=== PATIENT | female | born 1965 | race Caucasian/White ===

== ENCOUNTER 2020-03-23 08:39 | Emergency (ER) | payer BC ==
--- OUTSIDE RECORDS SUMMARY | 2020-03-23 08:42 | XMS REPORT | Clinical Summary ---
:1965 Author Organization [facility] Address [address] [place] [address] Care Team Providers Name Role Phone Clarissa Hendricks MD Primary Care Provider Allergies No Known Allergies Medications Medication Sig Dispensed Refills Start Date End Date Status lisinopril Take 5 mg by 0 Active (PRINIVIL,ZESTRIL) 5 MG mouth daily. tablet metFORMIN (GLUCOPHAGE) Take 500 mg by 0 Active 500 MG tablet mouth daily with breakfast. estradiol (VIVELLE-DOT) Place 1 patch 0 Active 0.025 mg/24 hr patch onto the skin twice a week. pravastatin (PRAVACHOL) Take 10 mg by 0 Active 10 MG tablet mouth daily. fluvastatin (LESCOL) 20 Take 20 mg by 0 Active MG capsule mouth nightly. Active Problems Not on file Social History Tobacco Use Types Packs/Day Years Used Date Never Smoker Smokeless Tobacco: Never Used Alcohol Use Drinks/Week oz/Week Comments Yes social drinker Sex Assigned at Date Recorded Not on file Job Start Date Occupation Industry Not on file Not on file Not on file Travel History Travel Start Travel End No recent travel history available. Last Filed Vital Signs Not on file Plan of Treatment Not on file Results Not on fileafter 03/23/2019 Insurance Payer Benefit Plan / Subscriber ID Type Phone Address Group BLUE CROSS/BLUE [employer] OS xxxxxxxxxxxxxxx PPO [phone] [address] [place]IELD POS/PPO/[place] [address] [id number] (Home) [place] [id number]
--- OUTSIDE RECORDS SUMMARY | 2020-03-23 08:42 | XMS REPORT | Continuity of Care Document ---
:1965 Author Organization [facility] t Address [address] [place] [address] Care Team Providers Name Role Phone Clarissa Hendricks MD Primary Care Physician JAY STONE Attending Clinician Unavailable LYNETTE BETTS Admitting Clinician Unavailable Payers Payer Name Policy Type Policy Number Effective Date Expiration Date S ource Problems This patient has no known problems. Allergies, Adverse Reactions, Alerts This patient has no known allergies or adverse reactions. Social History Social Habit Start Date Stop Date Quantity Comments Source Sex Assigned At [facility] Alcohol Comment 2018-01-18 2018-01-18 social drinker [facility]00 00:00:00 [facility] Smoking Status Start Date Stop Date Source Never smoker [facility] Medications Ordered Filled Start Stop Current Ordering Indication Dosage Frequency Signature Comments Components Source Medication Medication Date Date Medication? Clinician (SIG) Name Name fluvastatin Yes 20mg QD Take [address] [facility] (LESCOL) 20 6-27 by mouth Luke [facility] - MG capsule 10:35: nightly. Med ical 04 [facility] lisinopril Yes 5mg QD Take [address] [facility] [address] [facility] (PRINIVIL,Z 6-26 by mouth Luke [facility] - ESTRIL) 5 10:36: daily. Medica l MG tablet 55 [facility] metFORMIN 2018-0 Yes 500mg Take [address] [facility] (GLUCOPHAGE 6-26 mg by [facility] - ) 500 MG 10:36: mouth Medical tablet 55 daily with Center breakfast. estradiol 2018-0 Yes 1{patch Q.5W Place [address] [facility] [address] [facility] (VIVELLE-DO 6-26 } patch onto Eileen kes - T) 0.025 10:36: the skin Medic al mg/24 hr 55 twice a Center patch week. pravastatin 2018-0 Yes 10mg QD Take [address] [facility] (PRAVACHOL) 6-26 by mouth Luke [facility] - 10 MG 10:36: daily. Medical tablet 55 Center Procedures This patient has no known procedures. Results Test Description Test Time Test Comments Results Result [facility] e Comments CYTOLOGY 2018-01-20 Medical Cytology 17:21:00 Report Case: [id number] Authorizing Provider: Sandip Camargo MD Collected: 01/18/2018 1220 Ordering Location: [facility] Rad[facility] Main Received: 01/18/2018 1543 Pathologist: Georgie Dudley MD Specimen: Peritoneal Fluid, right retroperitoneal fluid collection PERITONEAL FLUID (CYTOSPINS): - NO MALIGNANT CELLS IDENTIFIED (SEE COMMENT) Signing Pathologist Direct Phone Line: [phone] gabino signed by eGorgie Dudley MD on 01/20/2018 at 5:21 PMCytospins show a few scattered lymphocytes, rare macrophages and background degenerated inflammatory cells or red blood cells. No diagnostic features of malignancy are seen. Clinical/radiological correlation is recommended for further evaluation.[id number] es (rule out lymphangioma)PERITONE AL FLUID8 mls pale yellow; 4 cytospinsCollected: [id number]: [id number] [facility], Department of Pathology, [address] [place] [id number], [facility], [address] [place] [id number], [address], BIOPSY, 2018-01-18 Reason for FINAL REPORT PATIENT ABDOMEN 17:30:00 Exam:->r19.00 ID: [id number] CT guided retroperitoneal lesion biopsy History: r19.00 Comparison: CT dated November 24, 2017, performed at an outside institution Modality: CT, CT fluoroscopy Anesthesia: 1% lidocaine local Approach: Posterior percutaneous Consent: The risks, benefits, and alternatives to the procedure were discussed with the patient. The patient expressed understanding and informed written consent was obtained. Time out: A pre-procedure time out was performed in order to confirm the appropriate site of the procedure. Sedation: Moderate sedation was administered, including a total of 1.0 mg of Versed and 50 mcg of fentanyl. Continuous monitoring was performed by the operating physician and radiology nursing throughout the procedure. Duration of conscious sedation: 30 minutes. Technique: This exam was performed according to our departmental dose optimization program which includes automated exposure control, adjustment of the mA and/or kV according to patient's size and/or use of iterative reconstructive technique. The patient was placed prone in the CT scanner. Right retroperitoneal lesion was localized using CT and CT fluoroscopy. After the usual sterile preparation and application of local anesthesia, a 19-gauge introducer needle was advanced into the lesion using CT guidance. A single pass is made with 20-gauge Temno needle, yielding no tissue. Subsequently, approximately 8 cc of clear yellow fluid is aspirated, proving that this is a cystic structure. Approximately 8 cc of Isovue-300 diluted in saline (1: 20 ratio) is injected into this lesion, which demonstrates opacification of the entire abnormality, including components surrounding the renal vessels. Specimen is sent to cytology. Disposition: The patient tolerated the procedure well, without immediate complications. The patient left CT in stable condition. Impression: 1. Technically successful CT guided aspiration of a right retroperitoneal lesion. Signed: Sandip Camargo Verified Date/Time: 01/18/2018 17:30:33 Reading Location: [place] [id number] CT Body Reading Room 2018-01-18 10:27:00 Test Item Value Reference Range Interpretation Comme nts PARTIAL THROMBOPLASTIN TIME (BEAKER) (test code = 760) 28.8 seconds 22.5-36.0 PROTHROMBIN TIME/[id number] 10:26:00 Test Item Value Reference Range Interpretation Comments PROTIME (BEAKER) (test code = 13.9 seconds 11.7-14.7 759) INR (BEAKER) (test code = 370) 1.1 <=5.9 RECOMMENDED COUMADIN/WARFARIN INR THERAPY RANGESSTANDARD DOSE: 2.0 - 3.0 Includes: PROPHYLAXIS forvenous thrombosis, systemic embolization; TREATMENT for venous thrombosis and/or pulmonary embolus.HIGH RISK: Target INR is 2.5-3.5 for patients with mechanical heart valves.PLATELET [id number] 10:01:00 Test Item Value Reference Range Interpretation Comments PLATELET COUNT (VICKIAKER) (test 256 K/CU MM 150-450 code = 756)
[2020-03-23] MEDS ORDERED: ONDANSETRON 4 MG/2 ML VIAL ONE (09:05)
[2020-03-23] MEDS ORDERED: NA CHLORIDE 0.9% 2,000 ML ONE (09:05)
[2020-03-23] MEDS ORDERED: KETOROLAC 30 MG/ML INJ ONE (09:05)
[2020-03-23] MEDS ORDERED: METOCLOPRAMIDE 10 MG/2mL INJ ONE (09:05)
[2020-03-23 09:21] LABS: Absolute Lymphocytes (CBC) 2.3 K/uL (0.7-4.9); Basophils % 0.8 % (0-1.3); Hematocrit 40.7 % (36.0-45.0); Lymphocytes % 20.6 % (15.3-44.8); MPV 8.9 fL (7.6-11.3); RBC Red Blood Cell Count 4.93 M/uL (3.86-4.86)
[2020-03-23 09:32] LABS: Albumin 3.9 g/dL (3.4-5.0); Bilirubin Direct 0.1 mg/dL (0-0.2); Bilirubin Total 0.5 mg/dL (0.2-1.0); Potassium 3.8 mmol/L (3.5-5.1); Protein, Total 7.5 g/dL (6.4-8.2)
[2020-03-23 10:31] LABS: Urine Blood TRACE (NEG); Urine Glucose 2+ (NEG); Urine Protein NEGATIVE (NEG); Urine Specific Gravity 1.025 (1.005-1.030); Urine pH 7.5 (5.0-7.0)
[2020-03-23 10:47] LABS: Urine Bacteria <20 /HPF (<20); Urine Culture Reflex Order NOT NEEDED; Urine RBC <5 /HPF (NONE SEEN)
--- NOTE | 2020-03-23 10:47 | EDPHYS ---
Physician Documentation [facility] Name: Isabel Mayo Age: 54 yrs Sex: Female : 1965 Arrival Date: 03/23/2020 Time: 08:44 Bed 17 Private MD: ED Physician Raissa Polo HPI: 03/23 10:45 This 54 yrs old Female presents to ER via Ambulatory with complaints of ma2 Nausea, Headache. 10:45 The patient presents to the emergency department with nausea. Onset: The ma2 symptoms/episode began/occurred gradually, 1 day(s) ago. Associated signs and symptoms: Pertinent negatives: anorexia, dysuria, flatulence, hematuria, nausea. Severity of symptoms: At their worst the symptoms were mild in the emergency department the symptoms are unchanged. The patient has experienced similar episodes in the past. Historical: - Allergies: 08:51 No Known Allergies; em - PMHx: 08:51 "pre-hypertensive"; "pre-diabetic"; em - PSHx: 08:51 Hysterectomy; em - Immunization history:: Adult Immunizations up to date. - Social history:: Smoking status: Patient denies any tobacco usage or history of. Patient/guardian denies using alcohol, street drugs, The patient lives with family. - Family history:: not pertinent. ROS: 10:45 Constitutional: Negative for fever, chills, and weight loss. ma2 10:45 All other systems are negative. Exam: 10:45 Constitutional: This is a well developed, well nourished patient who is awake, alert, ma2 and in no acute distress. Chest/axilla: Normal chest wall appearance and motion. Nontender with no deformity. No lesions are appreciated. Cardiovascular: Regular rate and rhythm with a normal S1 and S2. No gallops, murmurs, or rubs. Normal PMI, no JVD. No pulse deficits. Respiratory: Lungs have equal breath sounds bilaterally, clear to auscultation and percussion. No rales, rhonchi or wheezes noted. No increased work of breathing, no retractions or nasal flaring. Abdomen/GI: Soft, non-tender, with normal bowel sounds. No distension or tympany. No guarding or rebound. No evidence of tenderness throughout. MS/ Extremity: Pulses equal, no cyanosis. Neurovascular intact. Full, normal range of motion. Neuro: Awake and alert, GCS 15, oriented to person, place, time, and situation. Cranial nerves II-XII grossly intact. Motor strength 5/5 in all extremities. Sensory grossly intact. Cerebellar exam normal. Normal gait. Vital Signs: 08:48 BP 155 / 89; Pulse 84; Resp 18; Temp 97.5(O); Pulse Ox 100% on R/A; Weight 72.57 kg; em Height 5 ft. 4 in. (162.56 cm); Pain 4/10; 09:39 BP 120 / 95; Pulse 88; Resp 16; Pulse Ox 100% on R/A; em 10:45 BP 127 / 70; Pulse 95; Resp 18; Pulse Ox 100% on R/A; Pain 2/10; em 08:48 Body Mass Index 27.46 (72.57 kg, 162.56 cm) em MDM: 08:44 Patient medically screened. ma2 10:45 Differential diagnosis: gastritis, pancreatitis, viral gastroenteritis, ma2 gastroenteritis. Data reviewed: vital signs, nurses notes. Counseling: I had a detailed discussion with the patient and/or guardian regarding: the historical points, exam findings, and any diagnostic results supporting the discharge/admit diagnosis, the presence of at least one elevated blood pressure reading (>120/80) during this emergency department visit, the need for outpatient follow up. Response to treatment: the patient's symptoms have resolved after treatment. 03/23 08:47 Order name: Basic Metabolic Panel; Complete Time: 09:50 sc2 03/23 08:47 Order name: CBC with Diff; Complete Time: 09:50 sc2 03/23 08:47 Order name: Hepatic Function; Complete Time: 09:50 ma2 03/23 08:47 Order name: Lipase; Complete Time: 09:50 sc2 03/23 10:10 Order name: Urine Dipstick--Ancillary (enter results) eb 03/23 08:47 Order name: IV Saline Lock; Complete Time: 09:06 sc2 03/23 08:47 Order name: Labs collected and sent; Complete Time: 09:06 sc2 03/23 10:31 Order name: Urine Microscopic Only EDMS Administered Medications: 08:44 Drug: Zofran (Ondansetron) 4 mg Route: PO; em 08:54 Follow up: Response: No adverse reaction; No change in condition em 08:55 Drug: NS 0.9% 2000 ml Route: IV; Rate: 1 bolus; Site: right antecubital; em 10:59 Follow up: IV Status: Completed infusion; IV Intake: 2000ml em 08:55 Drug: Zofran (Ondansetron) 4 mg Route: IVP; Site: right antecubital; em 09:36 Follow up: Response: No adverse reaction; Marked relief of symptoms; Nausea is decreasedem 08:59 Drug: TORadol 30 mg Route: IVP; Site: right antecubital; em 09:36 Follow up: Response: No adverse reaction; Marked relief of symptoms; Pain is decreased em 09:02 Drug: Reglan 10 mg Route: IVP; Site: right antecubital; em 10:01 Follow up: Response: No adverse reaction; Marked relief of symptoms em Disposition: 03/23/20 10:46 Discharged to Home. Impression: Headache, Nausea. - Condition is Stable. - Discharge Instructions: Nausea, Adult. - Prescriptions for Reglan 10 mg Oral Tablet - take 1 tablet by ORAL route every 6 hours . take 30 minutes before meals and at bedtime; 100 tablet. - Medication Reconciliation Form, Thank You Letter, Antibiotic Education, Prescription Opioid Use form. - Follow up: Private Physician; When: Tomorrow; Reason: Continuance of care. Signatures: Dispatcher [employer] Bonifacio Mendiola RN RN Raissa Lee MD MD ma2 Corrections: (The following items were deleted from the chart) 10:31 08:47 URINALYSIS+U.LAB.BRZ ordered. [facility] 11:00 10:46 03/23/2020 10:46 Discharged to Home. Impression: Headache; Nausea. Condition is em Stable. Forms are Medication Reconciliation Form, Thank You Letter, Antibiotic Education, Prescription Opioid Use. Follow up: Private Physician; When: Tomorrow; Reason: Continuance of care. ma2
--- NOTE | 2020-03-23 10:47 | ER ---
Nurse's Notes [facility] Name: Isabel Mayo Age: 54 yrs Sex: Female : 1965 Arrival Date: 03/23/2020 Time: 08:44 Bed 17 Private MD: Diagnosis: Headache;Nausea Presentation: 03/23 08:48 Chief complaint: Patient states: woke up with headache this morning, around 0715 became em nauseous and vomited 6 times, denies fever or abdominal pain. Coronavirus screen: Client denies travel out of the [place] in the last 14 days. Ebola Screen: Patient negative for fever greater than or equal to 101.5 degrees Fahrenheit, and additional compatible Ebola Virus Disease symptoms Patient denies exposure to infectious person. Patient denies travel to an Ebola-affected area in the 21 days before illness onset. No symptoms or risks identified at this time. Initial Sepsis Screen: Does the patient meet any 2 criteria? No. Patient's initial sepsis screen is negative. Does the patient have a suspected source of infection? No. Patient's initial sepsis screen is negative. Risk Assessment: Do you want to hurt yourself or someone else? Patient reports no desire to harm self or others. Onset of symptoms was March 23, 2020. 08:48 Method Of Arrival: Ambulatory em 08:48 Acuity: MERCEDES 3 em Historical: - Allergies: 08:51 No Known Allergies; em - PMHx: 08:51 "pre-hypertensive"; "pre-diabetic"; em - PSHx: 08:51 Hysterectomy; em - Immunization history:: Adult Immunizations up to date. - Social history:: Smoking status: Patient denies any tobacco usage or history of. Patient/guardian denies using alcohol, street drugs, The patient lives with family. - Family history:: not pertinent. Screenin:48 Abuse screen: Denies threats or abuse. Nutritional screening: No deficits noted. em Tuberculosis screening: No symptoms or risk factors identified. Fall Risk None identified. Assessment: 08:48 General: Appears in no apparent distress. uncomfortable, Behavior is calm, cooperative, em appropriate for age, Denies fever. Pain: Complains of pain in forehead Pain currently is 4 out of 10 on a pain scale. Pain began 4 hours ago. Neuro: Level of Consciousness is awake, alert, obeys commands, Oriented to person, place, time, situation, Appropriate for age Reports headache frontal area. Cardiovascular: Capillary refill < 3 seconds Patient's skin is warm and dry. Respiratory: Airway is patent Respiratory effort is even, unlabored, Respiratory pattern is regular, symmetrical. GI: Abdomen is flat, Abd is soft and non tender X 4 quads. Reports nausea, Patient currently denies vomiting. Derm: Skin is intact, is healthy with good turgor, Skin is pink, warm \\T\\ dry. Musculoskeletal: Capillary refill < 3 seconds, Range of motion: intact in all extremities. 09:39 Reassessment: Patient appears in no apparent distress at this time. Patient and/or em family updated on plan of care and expected duration. Pain level reassessed. Patient is alert, oriented x 3, equal unlabored respirations, skin warm/dry/pink. Patient states feeling better. Patient states symptoms have improved. 10:45 Reassessment: Patient appears in no apparent distress at this time. Patient and/or em family updated on plan of care and expected duration. Pain level reassessed. Patient is alert, oriented x 3, equal unlabored respirations, skin warm/dry/pink. Vital Signs: 08:48 BP 155 / 89; Pulse 84; Resp 18; Temp 97.5(O); Pulse Ox 100% on R/A; Weight 72.57 kg; em Height 5 ft. 4 in. (162.56 cm); Pain 4/10; 09:39 BP 120 / 95; Pulse 88; Resp 16; Pulse Ox 100% on R/A; em 10:45 BP 127 / 70; Pulse 95; Resp 18; Pulse Ox 100% on R/A; Pain 2/10; em 08:48 Body Mass Index 27.46 (72.57 kg, 162.56 cm) em ED Course: 08:44 Patient arrived in ED. em 08:44 Raissa Polo MD is Attending Physician. ma2 08:48 Bonifacio Richards, MARLON is Primary Nurse. em 08:48 Patient has correct armband on for positive identification. Bed in low position. Call em light in reach. Pulse ox on. NIBP on. 08:50 Triage completed. em 08:51 Arm band placed on. em 08:55 Initial lab(s) drawn, by me, sent to lab. Inserted saline lock: 20 gauge in right em antecubital area, using aseptic technique. Blood collected. 10:51 No provider procedures requiring assistance completed. IV discontinued, intact, em bleeding controlled, No redness/swelling at site. Pressure dressing applied. Administered Medications: 08:44 Drug: Zofran (Ondansetron) 4 mg Route: PO; em 08:54 Follow up: Response: No adverse reaction; No change in condition em 08:55 Drug: NS 0.9% 2000 ml Route: IV; Rate: 1 bolus; Site: right antecubital; em 10:59 Follow up: IV Status: Completed infusion; IV Intake: 2000ml em 08:55 Drug: Zofran (Ondansetron) 4 mg Route: IVP; Site: right antecubital; em 09:36 Follow up: Response: No adverse reaction; Marked relief of symptoms; Nausea is decreasedem 08:59 Drug: TORadol 30 mg Route: IVP; Site: right antecubital; em 09:36 Follow up: Response: No adverse reaction; Marked relief of symptoms; Pain is decreased em 09:02 Drug: Reglan 10 mg Route: IVP; Site: right antecubital; em 10:01 Follow up: Response: No adverse reaction; Marked relief of symptoms em Intake: 10:59 IV: 2000ml; Total: 2000ml. em Outcome: 10:46 Discharge ordered by . ma2 10:58 Discharged to home ambulatory. em 10:58 Condition: improved 10:58 Discharge instructions given to patient, Instructed on discharge instructions, follow up and referral plans. medication usage, Demonstrated understanding of instructions, follow-up care, medications, Prescriptions given X 1. 11:00 Patient left the ED. em Signatures: Bonifacio Richards, RN RN em Raissa Polo MD MD ma2
[2020-03-26 15:13] VITALS: TEMP 97.5; O2SAT 100
[2020-03-26 15:16] VITALS: BP 127/70
== END 2020-03-23 11:00 | disposition home or self-care (01) ==
LOC: ER 08:39
DX: R51 Headache (principal); R73.03 Prediabetes
CPT/HCPCS: 96361; 85025; 80048; 36415; 80076; 83690; 96375; 96374; 99284; J2765; J7030; J2405; 81003; 81015

== ENCOUNTER 2023-06-27 06:57 | Emergency (ER) | payer BC ==
--- OUTSIDE RECORDS SUMMARY | 2023-06-27 07:01 | XMS REPORT | Continuity of Care Document ---
:1965 Author Organization [facility] t Address [address] [place] [address] Care Team Providers Name Role Phone Robert Hendricks Primary Care Physician SAHVON Attending Clinician Unavailable Svetlana Kunz Attending Clinician [phone] SANJAY DO Attending Clinician Unavailable Courtney Attending Clinician Unavailable LANETTE STONE Attending Clinician Unavailable SHAVON Admitting Clinician Unavailable Courtney Admitting Clinician Unavailable REG BETTS Admitting Clinician Unavailable Payers Payer Name Policy Type Policy Number Effective Date Expiration Date S [place] [id number] 2020 BCBS (EPO) 00:00:00 [place] [id number] 2020 [facility] 00:00:00 [place] [id number] 2020 00:00:00 Problems Condition Condition Condition Status Onset Resolution Last Treating Co mments Source Name Details Category Date Date Treatment Clinician Date Type 2 Type 2 Problem Active [place] diabetes Diabetes 12-19 Commun i [facility] Problem Active S tomi turcios 12-19 Communi 00:00: ty 00 [facility] Allergies, Adverse Reactions, Alerts This patient has no known allergies or adverse reactions. Social History Social Habit Start Date Stop Date Quantity Comments Source Sexual orientation [facility] Tobacco use and 2018-01-18 2018-01-18 Smokeless [address] [facility] exposure 00:00:00 00:00:00 non-user [facility] Alcohol intake 2018-01-18 2018-01-18 Current drinker [facility] 00:[facility]:00 of alcohol [facility] (finding) Alcohol Comment 2018-01-18 2018-01-18 social drinker [facility] Sex Assigned At [birth year] [facility] 00:00:00 00:00:00 [facility] Center Smoking Status Start Date Stop Date Source Tobacco smoking consumption [facility] unknown Never Smoker [facility] Medications Ordered Filled Start Stop Current Ordering Indication Dosage Frequency Signature Comments Components Source Medication Medication Date Date Medication? Clinician (SIG) Name Name estradiol Yes 1{patch Q.5W Place [address] (VIVELLE-DO 6-27 } patch onto Eileen durgas T) 0.025 13:46: the skin Medic al mg/24 hr 16 twice a Center patch week. pravastatin Yes 10mg QD Take [address] (PRAVACHOL) 6-27 by mouth Luke s 10 MG 13:46: daily. Medical tablet 16 [place] fluvastatin Yes 20mg QD Take [address] (LESCOL) 20 6-27 by mouth Luke s MG capsule 13:46: nightly. Med ical 16 [place] lisinopril Yes 5mg QD Take [address] (PRINIVIL,Z 6-27 by mouth Luke s ESTRIL) 5 13:46: daily. Medica l MG tablet 16 [place] metFORMIN Yes 500mg Take [address] [facility] (GLUCOPHAGE 6-27 mg [facility] ) 500 MG 13:46: mouth Medical tablet 16 daily with Center breakfast. Contour Contour No Contour [place] Next Test Next Test Next Test Communi Strips Strips Strips [facility] FreeStyle FreeStyle No FreeStyle [place] Henrique 14 Henrique 14 Henrique 14 Com [place] Day [place] ty USE USE USE Hospita DIRECTED DIRECTED DIRECTED l Clinics FreeStyle FreeStyle No FreeStyle [place] Henrique 14 Henrique 14 Henrique 14 Com Sensor Day Sensor Day Sensor ty kit USE kit USE kit USE Hospit a EVERY 14 EVERY 14 EVERY 14 l DAYS DAYS DAYS Clinic s DIRECTED DIRECTED DIRECTED losartan 25 losartan 25 No losartan [place] mg tablet mg tablet 25 mg Comm uni TAKE 1 TAKE 1 tablet ty TABLET BY TABLET BY TAKE 1 Hos oc MOUTH EVERY MOUTH EVERY TABLET BY l DAY DAY MOUTH Clinics EVERY DAY losartan 50 losartan 50 No losartan [place] mg tablet mg tablet 50 mg Comm uni tablet ty [facility] metformin metformin No metformin [place] ER 500 mg ER 500 mg ER 500 mg Communi tablet,exte tablet,exte tablet,ext ty nded nded ended Hospita release 24 release 24 release 24 l hr BID hr BID hr BID Clinics metoclopram metoclopram No metoclopra [place] liza 10 mg liza 10 mg mide 10 mg Communi tablet TAKE tablet TAKE tablet ty 1 TABLET BY 1 TABLET BY TAKE 1 Hospita MOUTH EVERY MOUTH EVERY TABLET BY l 6 HOURS . 6 HOURS . MOUTH Clin ics TAKE 3O TAKE 3O EVERY 6 MINUTES MINUTES HOURS . BEFORE BEFORE TAKE 3O MEALS AND MEALS AND MINUTES AT BEDTIME AT BEDTIME BEFORE MEALS AND AT BEDTIME Microlet Microlet No Microlet Swe rubén Lancet Lancet Lancet Communi ty [facility] Clinics ondansetron ondansetron No ondansetro [place] HCl 8 mg HCl 8 mg n HCl 8 mg C ommuni tablet TAKE tablet TAKE tablet ty 1 TABLET BY 1 TABLET BY TAKE 1 Hospita MOUTH THREE MOUTH THREE TABLET BY l TIMES A DAY TIMES A DAY MOUTH Clinics NEEDED NEEDED THREE TIMES A DAY NEEDED Trulicity 3 Trulicity 3 No Trulicity [place] mg/0.5 mL mg/0.5 mL 3 mg/0.5 C ommuni subcutaneou subcutaneou mL t y s pen s pen subcutaneo Hospita injector injector us pen l injector Clinics Contour Contour No Contour [place] Next Test Next Test Next Test Communi Strips Strips Strips ty [facility] Clinics fenofibrate fenofibrate No 1 Q1D fenofibrat [place] nanocrystal nanocrystal e C ommuni lized 145 lized 145 nanocrysta ty mg tablet mg tablet llized 145 Hospita Take 1 Take 1 mg tablet l tablet tablet Take 1 Clinics every day every day tablet by oral by oral every day route for route for by oral 30 days. 30 days. route for 30 days. FreeStyle FreeStyle No FreeStyle [place] Henrique 14 Henrique 14 Henrique 14 Com [place] Day [place] Day [place] Day [place] ty USE USE USE Hospita DIRECTED DIRECTED DIRECTED l Clinics FreeStyle FreeStyle No FreeStyle [place] Henrique 2 Henrique 2 Henrique 2 Commun i Sensor kit Sensor kit Sensor kit ty USE EVERY USE EVERY USE EVERY Hospita 14 DAYS 14 DAYS 14 DAYS l DIRECTED DIRECTED DIRECTED Cli nics losartan 50 losartan 50 No losartan [place] mg tablet mg tablet 50 mg Comm uni tablet ty Hospita l Clinics metformin metformin No 1 BID metformin [place] ER 1,000 mg ER 1,000 mg ER 1,000 Communi 24 hr 24 hr mg 24 hr ty tablet,exte tablet,exte tablet,ext Hospita nded nded ended l release release release Clinic s Take 1 Take 1 Take 1 tablet tablet tablet twice a day twice a day twice a by oral by oral day by route. route. oral route. Microlet Microlet No Microlet Swe rubén Lancet Lancet Lancet Communi ty Hospita l Clinics omega-3 omega-3 No omega-3 [place] acid ethyl acid ethyl acid ethyl Communi esters 1 esters 1 esters 1 ty gram gram gram Hospita capsule capsule capsule l Clinics ondansetron ondansetron No 1 Q7H ondansetro [place] 4 mg 4 mg n 4 mg Communi disintegrat disintegrat disintegra ty ing tablet ing tablet ting Hos oc Place 1 Place 1 tablet l tablet tablet Place 1 Clinics every 6-8 every 6-8 tablet hours by hours by every 6-8 translingua translingua hours by l route. l route. translingu al route. propranolol propranolol No 1 TID propranolo [place] 20 mg 20 mg l 20 mg Communi tablet Take tablet Take tablet ty 1 tablet 3 1 tablet 3 Take 1 H ospita times a day times a day tablet 3 l by oral by oral times a Clinic s route for route for day by 30 days. 30 days. oral route for 30 days. Trulicity 3 Trulicity 3 No Trulicity [place] mg/0.5 mL mg/0.5 mL 3 mg/0.5 C ommuni subcutaneou subcutaneou mL t y s pen s pen subcutaneo Hospita injector injector us pen l injector Clinics Vital Signs Vital Name Observation Time Observation Value Comments Source BP Diastolic 2021-08-21 00:00:00 77 mm[Hg] [facility] BP Systolic 2021-08-21 00:00:00 125 mm[Hg] [facility] Body Weight 2021-08-21 00:00:00 2576 [oz_av] [facility] BP Diastolic 2020-12-19 00:00:00 66 mm[Hg] [facility] BP Systolic 2020-12-19 00:00:00 136 mm[Hg] [facility] Body Weight 2020-12-19 00:00:00 2576 [oz_av] [facility] Procedures Procedure Date / Time Performing Clinician Source Performed MRI, abdomen + pelvis, 2021-08-21 00:00:00 [facility] w/wo contrast [facility] US, kidney 2020-12-19 00:00:00 [facility] MRI, abdomen, w/o contrast 2020-12-19 00:00:00 [facility] Tubal Ligation [facility] Total Hysterectomy [facility] Cholecystectomy [facility] Plan of Care Planned Activity Planned Date Details Comments Source Future Scheduled Test 2023-05-18 INFLUENZA VACCINE [facility] 07:14:54 (#1) [code = INFLUENZA VACCINE (#1)] Future Scheduled Test 2023-05-18 [facility] 07:14:54 malignant neoplasm of colon (procedure) [code = 719792975] Future Scheduled Test 2023-05-18 [facility] 07:14:54 malignant neoplasm of colon (procedure) [code = 417945200] Future Scheduled Test 2023-05-18 HEPATITIS B [facility] 07:14:54 VACCINES (1 of 3 - 3-dose series) [code = HEPATITIS B VACCINES (1 of 3 - 3-dose series)] Future Scheduled Test 2023-05-18 Screening [facility] 07:14:54 malignant neoplasm of colon (procedure) [code = 702651307] Future Scheduled Test 2023-05-18 [facility] 07:[facility] screening (procedure) [code = 137311656] Future Scheduled Test 2023-05-18 Screening for [facility] 07:14:54 malignant neoplasm of cervix (procedure) [code = 844618410] Future Scheduled Test 2023-05-18 BREAST CANCER [facility] 07:14:54 SCREENING [code = BREAST CANCER SCREENING] Future Scheduled Test 2023-05-18 Screening for [facility] 07:14:54 malignant neoplasm of colon (procedure) [code = 130258586] Future Scheduled Test 2023-05-18 Screening for [facility] 07:14:54 malignant neoplasm of colon (procedure) [code = 540085448] Future Scheduled Test 2023-05-18 [facility] 07:[facility] (1 of 2) [code = SHINGLES VACCINES (1 of 2)] Future Scheduled Test 2023-05-18 COVID-19 VACCINE (3 [facility] 07:14:54 - season) [code = COVID-19 VACCINE (3 - season)] Diagnostic Test 2021-08-21 urinalysis, Ward chau Pending 00:00:00 dipstick [facility] Encounters Start End Encounter Admission Attending Care Care Encounter Source Date/Time Date/Time Type Type Clinicians Facility Department ID 2021-09-11 2021-09-11 Outpatient [facility] [id number] [place] 04:53:00 04:53:00 0218 [facility] 2021-08-31 2021-08-31 Outpatient [facility] [id number] [place] 12:48:00 12:48:00 0207 [facility] i [facility] Clinics 2021-08-21 2021-08-21 Outpatient [facility] [id number] [place] 01:06:00 01:06:00 0128 Commun i ty Hospita l Clinics 2021-08-21 2021-08-21 Outpatient Joaquina [facility] [id number] 00:00:00 00:00:00 Svetlana [id number] 2021-08-21 2021-08-21 Svetlana [facility] [place] 00:00:00 00:00:00 [facility] 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 2021-05-21 2021-05-21 Outpatient ERNESTINA [facility] [id number] [place] 00:00:00 00:00:00 SANJAY [address] 2021-05-21 2021-05-21 Outpatient ERNESTINA [facility] [id number] [place] 00:00:00 00:00:00 SANJAY [address] 2021-01-13 2021-01-13 Outpatient JOAQUINA[facility] 2020 [place] 12:28:00 12:28:00 0622 Commun i ty Hospita l Clinics 2020-12-19 2020-12-19 Outpatient JOAQUINA[facility] [id number] [place] 12:08:00 12:08:00 0528 Commun i ty Hospita l Clinics 2020-12-19 2020-12-19 Svetlana [facility] [place] 00:00:00 00:00:00 [facility] uni 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 2020-12-19 2020-12-19 Outpatient oJaquina [facility] [id number] 00:00:00 00:00:00 Svetlana [id number] 2020-12-18 2020-12-18 Outpatient [facility] [id number] [place] 05:04:00 05:04:00 0527 Commun i ty Hospita l Clinics 2020-04-01 2020-04-01 Outpatient Courtney VFP VFP [id number] [facility] 05:17:00 05:17:00 [id number] [facility] Results Test Description Test Time Test Comments Results Result Comments Source Urinalysis macro (dipstick) panel - Urine 2021-08-21 10:47:0 0 Test Item Value Reference Range Interpretation Comme nts Leukocytes (test code = Leukocytes) Small Nitrite (test code = Nitrite) negative Urobilinogen (test code = Urobilinogen) .2 Protein (test code = Protein) 30 pH (test code = pH) 5.0 Blood (test code = Blood) Non-Hemolyzed: Trace Specific [place] (test code = Specific [place]) 1.025 Ketone (test code = Ketone) Small Bilirubin (test code = Bilirubin) Small Glucose (test code = Glucose) Negative Appearance (test code = Appearance) Cloudy Color (test code = Color) Dark [facility]00[facility] Cytology Report Case: [id number] Authorizing Provider: Sandip Camargo MD Collected: 01/18/2018 1220 Ordering Location: [facility] Radiology Main Received: 01/18/2018 1543 Pathologist: Georgie Dudley MDSpecimen: Peritoneal Fluid, right retroperitoneal fluid collection PERITONEAL FLUID (CYTOSPINS): - NO MALIGNANT CELLS IDENTIFIED (SEE COMMENT) Signing Pathologist Direct Phone Line: [phone] signed by Georgie Dudley MD on 01/20/2018 at 5:21 PMCytospins show a few scattered lymphocytes, rare macrophages and background degenerated inflammatory cells or red blood cells. No diagnostic features of malignancy are seen. Clinical/radiological correlation is recommended for further evaluation.[id number] (rule out lymphangioma)PERITONEAL FLUID8 mls pale yellow; 4 cytospinsCollected: [id number]: [id number], Department of Pathology, [address] [place] [address], [place] [address], [facility], [address], [place] [address], HM, BIOPSY, [id number] 17:30:00Reason for Exam:->r19.00FINAL REPORT CT guided retroperitoneal lesion biopsy History: r19.00 Comparison: CT dated November 24, 2017, performed at an outside institution Modality: CT, CT fluoroscopy Anesthesia: 1% lidocaine local Approach: Posterior percutaneous Consent: The risks, benefits, and alternatives tothe procedure were discussed with the patient. The [...] was advanced into the lesion using CT guidance.A single pass is made with 20-gauge Temno needle, yielding no tissue. Subsequently, approximately 8 cc of clear yellow fluid is aspirated, proving that this is a cystic structure. Approximately 8 cc ofIsovue-300 diluted in saline (1: 20 ratio) is injected into this lesion, which demonstrates opacification of the entire abnormality, including components surrounding the renal vessels. Specimen is sentto cytology. Disposition: The patient tolerated the procedure well, without immediate complications.The patient left CT in stable condition. Impression: 1. Technically successful CT guided aspiration of a right retroperitoneal lesion. Signed: Sandip Camargo Verified Date/Time: 01/18/2018 17:30:33 Reading Location: [facility] C013Y CT Body Reading Room [id number] 10:27:00 Test Item Value Reference Range Interpretation Comments PARTIAL THROMBOPLASTIN TIME 28.8 seconds 22.5-36.0 (BEAKER) (test code = 760) PROTHROMBIN TIME/[id number] 10:26:00 Test Item Value Reference Range Interpretation Comments PROTIME (BEAKER) (test code = 13.9 seconds 11.7-14.7 759) INR (BEAKER) (test code = 370) 1.1 <=5.9 RECOMMENDED COUMADIN/WARFARIN INR THERAPY RANGESSTANDARD DOSE: 2.0 - 3.0 Includes: PROPHYLAXIS for venous thrombosis, systemic embolization; TREATMENT for venous thrombosis and/or pulmonary embolus.HIGH RISK: Target INR is 2.5-3.5 for patients with mechanical heart valves.PLATELET [id number] 10:01:00 Test Item Value Reference Range Interpretation Comments PLATELET COUNT (BEAKER) (test 256 K/CU MM 150-450 code = 756)
[2023-06-27] MEDS ORDERED: MECLIZINE HCL 12.5 MG TAB ONE (07:48)
[2023-06-27] MEDS ORDERED: NA CHLORIDE 0.9% 500 ML ONE (07:48)
[2023-06-27 07:58] LABS: Absolute Lymphocytes (CBC) 1.9 K/uL (0.7-4.9); Hematocrit 42.9 % (36.0-45.0); Lymphocytes % 13.1 % (15.3-44.8); MCV 83.7 fL (80-100); MPV 7.7 fL (7.6-11.3); Platelets 260 thou/uL (152-406); RBC Red Blood Cell Count 5.12 M/uL (3.86-4.86)
--- NOTE | 2023-06-27 08:23 | RAD REPORT ---
EXAM DESCRIPTION: RAD - Chest Single View - 06/27/2023 7:52 am CLINICAL HISTORY: dizzy COMPARISON: CHEST PA AND LAT 2 VIEW dated 10/27/2011 FINDINGS: Lines: None. Lungs: No evidence of edema or pneumonia. Pleural: No significant pleural effusions or pneumothorax. Cardiac: The heart size is within normal limits. Mediastinum: Within normal limits. Bones: No acute fractures. Other: None IMPRESSION: No acute cardiopulmonary disease.
[2023-06-27 08:30] LABS: Albumin 3.7 g/dL (3.4-5.0); Bilirubin Direct 0.2 mg/dL (0-0.2); Bilirubin Indirect, Calculated 0.5 mg/dL (0.2-0.8); Bilirubin Total 0.7 mg/dL (0.2-1.0); Potassium 3.8 mEq/L (3.5-5.1); Protein, Total 7.2 g/dL (6.4-8.2); Troponin High Sensitivity 4.6 pg/mL (<58.9)
--- NOTE | 2023-06-27 09:00 | RAD REPORT ---
EXAM DESCRIPTION: CT - Head Brain Wo Cont - 06/27/2023 8:54 am CLINICAL HISTORY: Dizziness;Headache COMPARISON: Head angio dated 06/27/2023; Sinus Wo Cont dated 04/12/2019 TECHNIQUE: All CT scans are performed using dose optimization technique as appropriate and may inclu de automated exposure control or mA/KV adjustment according to patient size. FINDINGS: No intracranial hemorrhage, hydrocephalus or extra-axial fluid collection.No areas of brai n edema or evidence of midline shift. Mucous retention cyst in left maxillary sinus. The calvarium is intact. IMPRESSION: No acute intracranial abnormality.
--- NOTE | 2023-06-27 09:01 | RAD REPORT ---
EXAM DESCRIPTION: CT - Head angio - 06/27/2023 8:54 am CLINICAL HISTORY: DIZZINESS COMPARISON: Sinus Wo Cont dated 04/12/2019 TECHNIQUE: CT angiography of the head was performed with maximum intensity reformatted images. 3D ma ximum intensity pixel (MIP) reconstructions were created All CT scans are performed using dose optimization technique as appropriate and may include automated exposure control or mA/KV adjustment according to patient size. FINDINGS: Anterior circulation: No aneurysm or large vessel occlusion. No hemodynamically significant stenosis. No arteriovenous malf ormation identified. Posterior circulation: No aneurysm or large vessel occlusion. No hemodynamically significant stenosis. No arteriovenous malf ormation identified. IMPRESSION: No significant flow abnormality is detected.
--- NOTE | 2023-06-27 09:02 | RAD REPORT ---
EXAM DESCRIPTION: CT - Neck Angio - 06/27/2023 8:54 am CLINICAL HISTORY: dizziness COMPARISON: Head angio dated 06/27/2023 TECHNIQUE: CT angiography of the neck vessels was performed with maximum intensity reformatted image s. CAROTID STENOSIS REFERENCE USING NASCET CRITERIA: Mild - <50% stenosis. Moderate - 50-69% stenosis. Severe - 70-94% stenosis. Near occlusion - 95-99% stenosis. Occluded - 100% stenosis. All CT scans are performed using dose optimization technique as appropriate and may include automated exposure control or mA/KV adjustment according to patient size. FINDINGS: A left aortic arch is identified with normal three vessel configuration of the great vesse ls. No significant flow abnormality is seen of the common carotid bilaterally. No significant stenosis is identified involving the cervical segments of both internal carotid arteri es. Normal flow is seen within both vertebral arteries. IMPRESSION: No significant flow abnormality of the neck vessels is identified.
--- NOTE | 2023-06-27 09:05 | RAD REPORT ---
EXAM DESCRIPTION: MRI - Brain Wo Cont - 06/27/2023 8:42 am CLINICAL HISTORY: DIZZINESS COMPARISON: No comparisons TECHNIQUE: Sagittal T1-weighted images were obtained along with PD/heavily T2-weighted and T2-FLAIR images. Axial DWI and ADC mapping sequences were also obtained along with coronal heavily T2-weighted images were obtained. FINDINGS: No intracranial hemorrhage, mass or acute infarction. There is no edema or shift of midlin e structures. No extra-axial fluid collections. Signal voids are seen as a normal finding in the preeti r intracranial vessels. Mild to moderate chronic small vessel ischemic changes. Mucous retention cysts in the maxillary sinuses. IMPRESSION: No acute intracranial abnormality. Specifically, no evidence of acute infarct.
[2023-06-27 09:26] LABS: Protime INR 1.11
[2023-06-27 10:25] LABS: Urine Bacteria None Seen /HPF (<20); Urine Bilirubin NEGATIVE (Negative); Urine Blood Negative (Negative); Urine Clarity Clear (Clear); Urine Color Colorless (Yellow); Urine Glucose NEGATIVE (Negative); Urine Protein NEGATIVE (Negative); Urine Urobilinogen Normal (Normal)
[2023-06-27 10:27] LABS: Specific Gravity > 1.030 (1.005-1.030)
--- NOTE | 2023-06-27 10:31 | ER ---
Nurse's Notes [facility] Name: Isabel Mayo Age: 57 yrs Sex: Female : 1965 Arrival Date: 06/27/2023 Time: 06:57 Bed 8 Private MD: Diagnosis: Dizziness and giddiness;Vertigo, unspecified;Dehydration Presentation: 06/27 07:14 Chief complaint: Dizziness that started at 0330 today, also reports N/V. Denies pain. hb Coronavirus screen: At this time, the client does not indicate any symptoms associated with coronavirus-19. Coronavirus screen: At this time, unable to obtain information related to travel outside the [place] Ebola Screen: No symptoms or risks identified at this time. Initial Sepsis Screen: Does the patient meet any 2 criteria? No. Patient's initial sepsis screen is negative. Does the patient have a suspected source of infection? No. Patient's initial sepsis screen is negative. Risk Assessment: Do you want to hurt yourself or someone else? Patient reports no desire to harm self or others. Onset of symptoms was June 27, 2023 at 03:30. 07:14 Method Of Arrival: Ambulatory hb 07:14 Acuity: MERCEDES 3 hb Historical: - Allergies: 07:16 No Known Allergies; hb - Immunization history:: Adult Immunizations up to date. - Family history:: pertinent for Glioblastoma. - Social history:: Smoking status: Patient denies any tobacco usage or history of. - Hospitalizations: : No recent hospitalization is reported. Screenin:09 [facility] ED Fall Risk Assessment (Adult) History of falling in the last 3 months, ph including since admission No falls in past 3 months (0 pts) Confusion or Disorientation No (0 pts) Intoxicated or Sedated No (0 pts) Impaired Gait No (0 pts) Mobility Assist Device Used No (0 pt) Altered Elimination No (0 pt) Score/Fall Risk Level 0 - 2 = Low Risk Oriented to surroundings, Maintained a safe environment, Provided non-skid footwear, Hourly rounding (assess needs \T\ fall precautionary measures) done. Abuse screen: Denies threats or abuse. Denies injuries from another. Nutritional screening: No deficits noted. Tuberculosis screening: No symptoms or risk factors identified. Assessment: 08:08 General: Appears in no apparent distress. comfortable, well groomed, Behavior is calm, ph cooperative, appropriate for age, Denies fever. Pain: Denies pain. Neuro: Level of Consciousness is awake, alert, obeys commands, Oriented to person, place, time, situation, Reports dizziness. Cardiovascular: Reports lightheadedness, nausea, vomiting, Denies chest pain, shortness of breath, syncope, Capillary refill < 3 seconds in bilateral fingers Patient's skin is warm and dry. Rhythm is sinus rhythm. Respiratory: Airway is patent Respiratory effort is even, unlabored, Respiratory pattern is regular, symmetrical. GI: Reports nausea, vomiting x 1. : No signs and/or symptoms were reported regarding the genitourinary system. Derm: Skin is pink, warm \T\ dry. Musculoskeletal: Circulation, motion, and sensation intact. Range of motion: intact in all extremities. 09:30 Reassessment: Patient appears in no apparent distress at this time. Patient and/or ph family updated on plan of care and expected duration. Pain level reassessed. Patient is alert, oriented x 3, equal unlabored respirations, skin warm/dry/pink. Patient states feeling better. Patient states symptoms have improved. 10:48 Reassessment: Patient appears in no apparent distress at this time. Patient and/or ph family updated on plan of care and expected duration. Pain level reassessed. Patient is alert, oriented x 3, equal unlabored respirations, skin warm/dry/pink. Pt d/c home. Vital Signs: 07:14 BP 150 / 89; Pulse 89; Resp 16; Temp 97.2; Pulse Ox 100% on R/A; Pain 0/10; hb 08:10 BP 125 / 78; Pulse 80; Resp 18; Pulse Ox 100% on R/A; ph 09:12 BP 123 / 62; Pulse 82; Resp 18; Pulse Ox 98% on R/A; ph 10:15 BP 129 / 73; Pulse 78; Resp 18; Temp 97.8; Pulse Ox 99% on R/A; ph 07:14 Pain Scale: Adult hb ED Course: 07:02 Patient arrived in ED. [email or web address] 07:10 Drew Lazcano MD is Attending Physician. rn 07:12 Shyla Cadet RN is Primary Nurse. ph 07:16 Triage completed. hb 07:16 Arm band placed on. hb 07:45 Initial lab(s) drawn, by me, sent to lab. EKG done, by ED staff, reviewed by Drew Lazcano MD. Inserted saline lock: 22 gauge in left antecubital area, using aseptic technique. Blood collected. 07:54 Chest Single View XRAY In Process Unspecified. EDMS 08:10 Patient has correct armband on for positive identification. Placed in gown. Bed in low ph position. Call light in reach. Side rails up X 1. Pulse ox on. NIBP on. Door closed. Noise minimized. Warm blanket given. 08:42 Brain Wo Cont MRI In Process Unspecified. EDMS 08:56 CT Head Brain wo Cont In Process Unspecified. EDMS 08:[address] In Process Unspecified. EDMS 08:[address] In Process Unspecified. EDMS 10:48 No provider procedures requiring assistance completed. IV discontinued, intact, ph bleeding controlled, No redness/swelling at site. Pressure dressing applied. Administered Medications: 08:07 Drug: NS 0.9% IV 500 ml IV at bolus once Route: IV; Rate: bolus; Site: left antecubital;ph 09:13 Follow up: Response: No adverse reaction; IV Status: Completed infusion; IV Intake: ph 500ml 08:07 Drug: Meclizine PO 50 mg PO once Route: PO; ph 09:12 Follow up: Response: No adverse reaction ph Medication: 08:10 VIS not applicable for this client. ph Intake: 09:13 IV: 500ml; Total: 500ml. ph Outcome: 10:31 Discharge ordered by . rn 10:48 Discharged to home ambulatory, ph 10:48 Condition: good 10:48 Discharge instructions given to patient, Instructed on discharge instructions, follow up and referral plans. medication usage, Demonstrated understanding of instructions, follow-up care, medications, Prescriptions given X 1, 10:49 Patient left the ED. ph Signatures: Dispatcher [employer] EDMS Drew Lazcano MD MD rn Hall, Patricia, RN RN ph Baxter, Heather, RN RN hb Jeffries, Jennifer [email or web address]
--- NOTE | 2023-06-27 10:32 | EDPHYS ---
Physician Documentation [facility] Name: Isabel Mayo Age: 57 yrs Sex: Female : 1965 Arrival Date: 06/27/2023 Time: 06:57 Bed 8 Private MD: ED Physician Drew Lazcano HPI: 06/27 07:59 This 57 yrs old Female presents to ER via Ambulatory with complaints of Dizziness. rn 07:59 The patient presents with dizziness, sense of spinning. Onset: The symptoms/episode rn began/occurred this morning, at 03:30. Context: occurred at home, occurred while the patient was at rest, just prior to the episode the patient experienced no apparent symptoms. Modifying factors: The symptoms are alleviated by nothing, the symptoms are aggravated by nothing. 07:59 Severity of symptoms: At their worst the symptoms were moderate in the emergency rn department the symptoms have improved. The patient has not experienced similar symptoms in the past. Patient reports at approximately 330 this morning felt moderate amount of dizziness, room was spinning, nausea. Has not felt this before. No focal numbness or weakness. No vision changes. No speech problems. Symptoms have almost completely resolved. Patient is ambulatory and was able to drive herself to work today. Twin sister has a history of glioblastoma so patient wanted to make sure that that was not the problem. No medication changes. Does have high blood pressure and blood pressure has been running high recently as well. No chest pain. No shortness of breath. No abdominal pain. No GI bleeding.. Historical: - Allergies: 07:16 No Known Allergies; hb - Immunization history:: Adult Immunizations up to date. - Family history:: pertinent for Glioblastoma. - Social history:: Smoking status: Patient denies any tobacco usage or history of. - Hospitalizations: : No recent hospitalization is reported. ROS: 07:59 Constitutional: Negative for fever, chills, and weight loss, Eyes: Negative for injury, rn pain, redness, and discharge, Neck: Negative for injury, pain, and swelling, Cardiovascular: Negative for chest pain, palpitations, and edema, Respiratory: Negative for shortness of breath, cough, wheezing, and pleuritic chest pain, Abdomen/GI: Negative for abdominal pain, diarrhea, and constipation, Back: Negative for injury and pain, MS/Extremity: Negative for injury and deformity, Skin: Negative for injury, rash, and discoloration, Neuro: Negative for weakness, numbness, tingling, and seizure, positive for dizziness and mild head and neck pain Exam: 07:59 Constitutional: This is a well developed, well nourished patient who is awake, alert, rn and in no acute distress. Head/Face: Normocephalic, atraumatic. Eyes: Pupils equal round and reactive to light, extra-ocular motions intact. Lids and lashes normal. Conjunctiva and sclera are non-icteric and not injected. Cornea within normal limits. Periorbital areas with no swelling, redness, or edema. Neck: No neck stiffness. No meningismus. Cardiovascular: Regular rate and rhythm. No pulse deficits. Respiratory: No increased work of breathing, no retractions or nasal flaring. Skin: Warm, dry, no rashes MS/ Extremity: Pulses equal, no cyanosis. Neurovascular intact. Neuro: Awake and alert, GCS 15, oriented to person, place, time, and situation. Cranial nerves II-XII grossly intact. Motor strength 5/5 in all extremities. Sensory grossly intact. Cerebellar exam normal. 08:43 ECG was reviewed by the Attending Physician. rn Vital Signs: 07:14 BP 150 / 89; Pulse 89; Resp 16; Temp 97.2; Pulse Ox 100% on R/A; Pain 0/10; hb 08:10 BP 125 / 78; Pulse 80; Resp 18; Pulse Ox 100% on R/A; ph 09:12 BP 123 / 62; Pulse 82; Resp 18; Pulse Ox 98% on R/A; ph 10:15 BP 129 / 73; Pulse 78; Resp 18; Temp 97.8; Pulse Ox 99% on R/A; ph 07:14 Pain Scale: Adult hb MDM: 07:10 Patient medically screened. rn 10:29 Differential diagnosis: cardiac arrhythmia, CVA, hypovolemia, idiopathic dizziness, rn vertigo, Dehydration, volume depletion, early infection, early viral process. Data reviewed: vital signs, nurses notes, lab test result(s), EKG, radiologic studies, CT scan, MRI, and as a result, I will discharge patient. Care significantly affected by the following chronic conditions: Hypertension. Counseling: I had a detailed discussion with the patient and/or guardian regarding the historical points, exam findings, and any diagnostic results supporting the discharge/admit diagnosis, lab results, radiology results, the need for outpatient follow up, to return to the emergency department if symptoms worsen or persist or if there are any questions or concerns that arise at home. Special discussion: I discussed with the patient/guardian in detail that at this point there is no indication for admission to the hospital. It is understood, however, that if the symptoms persist or worsen the patient needs to return immediately for re-evaluation. Based on the history and exam findings, there is no indication for further emergent testing or inpatient evaluation. I discussed with the patient/guardian the need to see the neurologist for further evaluation of the symptoms. I discussed with the patient/guardian the need to see the primary care provider for further evaluation of the symptoms. ED course: Urine negative. No acute findings and workup other than volume depletion. Elevated WBC, but patient gives no symptoms of infection and afebrile. Explained could be early in the process and to watch out for any infectious symptoms. I have personally reviewed all of the results, including but not limited to blood tests and imaging deemed necessary to safely discharge this patient at this time. All results given to and printed out for patient. I personally went over all the results with the patient and answered all questions. Patient will follow-up with PCP and or specialist as discussed. Return precautions given and understood.. 06/27 07:17 Order name: Basic Metabolic Panel; Complete Time: : rn 06/27 07:17 Order name: CBC with Diff; Complete Time: : rn 06/27 07:17 Order name: Hepatic Function; Complete Time: : rn 06/27 07:17 Order name: Protime (+inr); Complete Time: : rn 06/27 07:17 Order name: Ptt, Activated; Complete Time: : rn 06/27 07:17 Order name: Troponin High Sensitivity; Complete Time: : rn 06/27 09:48 Order name: Urinalysis w/ reflexes; Complete Time: 10:29 rn 06/27 07:17 Order name: CT Head Brain wo Cont; Complete Time: : rn 06/27 07:17 Order name: Chest Single View XRAY; Complete Time: : rn 06/27 07:17 Order name: Head Angio CT; Complete Time: : rn 06/27 07:17 Order name: Neck Angio CT; Complete Time: 09:21 rn 06/27 07:17 Order name: Brain Wo Cont MRI; Complete Time: 09:21 rn 06/27 07:17 Order name: EKG; Complete Time: 07:18 rn 06/27 07:17 Order name: Cardiac monitoring; Complete Time: 08:08 rn 06/27 07:17 Order name: EKG - Nurse/Tech; Complete Time: 08:08 rn 06/27 07:17 Order name: IV Saline Lock; Complete Time: 08:08 rn 06/27 07:17 Order name: Labs collected and sent; Complete Time: 08:08 rn 06/27 07:17 Order name: O2 Per Protocol; Complete Time: 08:08 rn 06/27 07:17 Order name: O2 Sat Monitoring; Complete Time: 08:08 rn EC:43 Rate is 66 beats/min. Rhythm is regular. QRS [place] is Normal. CA interval is normal. QRS rn interval is normal. QT interval is normal. No Q waves. T waves are Normal. No ST changes noted. Clinical impression: Normal ECG. Interpreted by me. Reviewed by me. Administered Medications: 08:07 Drug: NS 0.9% IV 500 ml IV at bolus once Route: IV; Rate: bolus; Site: left antecubital;ph 09:13 Follow up: Response: No adverse reaction; IV Status: Completed infusion; IV Intake: ph 500ml 08:07 Drug: Meclizine PO 50 mg PO once Route: PO; ph 09:12 Follow up: Response: No adverse reaction ph Disposition Summary: 06/27/23 10:31 Discharge Ordered Notes: Location: Home rn Problem: new rn Symptoms: have improved rn Condition: Stable rn Diagnosis - Dizziness and giddiness rn - Vertigo, unspecified rn - Dehydration rn Followup: rn - With: Private Physician - When: As needed - Reason: Recheck today's complaints, Re-evaluation by your physician Discharge Instructions: - Discharge Summary Sheet rn - Dehydration, Adult rn - Dizziness rn - Vertigo rn Forms: - Medication Reconciliation Form rn - Thank You Letter rn - Antibiotic civil engineering intern - Prescription Opioid Use rn - Patient Portal Instructions rn - Leadership Thank You Letter rn Prescriptions: - Meclizine 25 mg Oral tablet - take 1 tablet ORAL route every 8 hours As needed; 20 tablet; Refills: 0, rn Product Selection Permitted Signatures: Dispatcher [employer] Drew Sinlgeton MD MD rn Shyla Cadet RN RN Annalisa Pierce RN RN hb
[2023-06-27 11:21] VITALS: BP 129/73; TEMP 97.8; O2SAT 99
--- NOTE | 2023-06-28 13:31 | EKG ---
Test Date: 2023-06-27 Test Time: 08:00:09 [employer] Supervisor: PH MEASUREMENT RESULTS: Intervals: Rate: 66 ID: [id number] QRSD: 86 QT: 410 QTc: 429 [place]: P: 80 ID: [id number] QRS: 78 T: 72 INTERPRETIVE STATEMENTS: Normal sinus rhythm Normal ECG Compared to ECG 02/28/2014 14:57:48 Sinus arrhythmia no longer present Electronically Signed On 06-28-23 13:27:20 ORDER WORKER by Jeferson Grier
== END 2023-06-27 10:49 | disposition home or self-care (01) ==
LOC: ER 06:57
DX: R42 Dizziness and giddiness (principal); E86.0 Dehydration
CPT/HCPCS: 93005; 85025; 81001; 80048; 36415; 85610; 80076; 85730; 84484; 70450; 70496; 70498; 71045; 70551; 96360; 99285; Q9967; J8597; J7040